=== PATIENT | female | born 1975 | race African-American/Black ===

== ENCOUNTER 2017-03-28 07:10 | Emergency (ER) | payer BC ==
--- NOTE | 2017-03-28 07:16 | PDOC ---
History of Present Illness - General Chief Complaint: Chest Pain Stated Complaint: CHEST PAIN Time Seen by Provider: 03/28/17 07:16 History Source: Patient - History of Present Illness Initial Comments: 03/28/17 07:43 Pt presents to the ED with the acute onset of sharp, constant, substernal non radiating chest pain and shortness of breath. Pain is pleuritic and worse with movements of her arms and chest. denies nausea, vomiting or diaphoresis. No history of similar pain. Pain began while she was guiding another person to the bathroom, but patient denies recent heavy lifting. History of HTN, for which she takes nifedipine and lisinopril, and has IUD in place. Patient is unsure whether IUD is a hormonal IUD or not. Aspirin Received prior to arrival: Yes: no aspirin today Past History - Past Medical History Allergies/Adverse Reactions: Allergies Allergy/AdvReac Type Severity Reaction Status Date / Time No Known Allergies Allergy Unverified 03/28/17 07:33 Home Medications: Ambulatory Orders Aspirin [ASA -] 81 mg PO DAILY 03/28/17 Lisinopril 10 mg PO DAILY 03/28/17 Nifedipine [Procardia Xl] 60 mg PO DAILY 03/28/17 Anemia: No Asthma: No Hx Myocardial Infarction: No CHF: No Diabetes: No HTN: Yes Other medical history: history of rheumatic fever without valve damage as a child - Reproductive History Is Patient Now?: No Review of Systems - Review of Systems Able to Perform ROS?: Yes Is the patient limited Spanish proficient: No Constitutional: No: Symptoms Reported, See HPI, Chills, Diaphoresis, Fever, Loss of Appetite, Malaise, Night Sweats, Weakness, Weight Stable, Unintentional Wgt. Loss, Unexplained wgt Loss, Other Respiratory: Yes: Shortness of Breath. No: Symptoms reported, See HPI, Cough, Orthopnea, SOB with Exertion, SOB at Rest, Stridor, Wheezing, Productive cough, Hemoptysis, Other Cardiac (ROS): Yes: Chest Pain. No: Symptoms Reported, See HPI, Edema, Irregular Heart Rate, Lightheadedness, Palpitations, Syncope, Chest Tightness, Other ABD/GI: No: Symptoms Reported, See HPI, Abdominal Distended, Abd. Pain w/ defecation, Blood Streaked Bowels, Constipated, Diarrhea, Difficulty Swallowing , Nausea, Poor Appetite, Poor Fluid Intake, Rectal Bleeding, Vomiting, Indigestion, Abdominal cramping, Tarry Stools, Other Neurological: No: Symptoms reported, See HPI, Headache, Numbness, Paresthesia, Pre-Existing Deficit, Seizure, Tingling, Tremors, Weakness, Unsteady Gait, Ataxia, Dizziness, Other Psychiatric: No: Anxiety, Depression, Frequent Crying, Stressors, Sleep Pattern Change, Emotional Problems, Mood Swings, Change in Appetite, Other All Other Systems: Reviewed and Negative *Physical Exam - Physical Exam General Appearance: Yes: Nourished, Appropriately Dressed. No: Apparent Distress, Disheveled, Mild Distress, Moderate Distress, Severe Distress, Alcohol on Breath, Intoxicated, Cachetic, Obese, Thin, Other HEENT: positive: EOMI, MIMI Neck: positive: Trachea midline, Supple Respiratory/Chest: positive: Chest Tender, Lungs Clear, Normal Breath Sounds. negative: Respiratory Distress, Accessory Muscle Use, Labored Respiration, Rapid RR, Decreased Breath Sounds, Paradoxal Breathing, Crackles, Rales, Rhonchi , Stridor, Wheezing, Hyperresonant, Dullness, Plerual Rub, Other Cardiovascular: positive: Regular Rhythm, Regular Rate, S1, S2. negative: Edema , JVD, Murmur, Bradycardia, Tachycardia, Diastolic Murmur, Systolic Murmur, Gallop/S3, Gallop/S4, Irregularly Irregular, Irregular, Other Gastrointestinal/Abdominal: positive: Normal Bowel Sounds, Flat, Soft. negative : Tender, Organomegaly, Pulsatile Mass, Increased Bowel Sounds, Decreased BS, Protuberent, Distended, Guarding, Rebound, Tenderness, Hernia, Mass, Hepatomegaly, Spleenomegaly, Other Musculoskeletal: positive: Normal Inspection Extremity: positive: Normal Capillary Refill, Normal Inspection Integumentary: positive: Normal Color, Dry, Warm Neurologic: positive: international travel consultant II-XII NML intact, Fully Oriented, Alert, Normal Mood/ Affect Heart Score/ECG Review - History History: Slightly suspicious - Electrocardiogram EKG: Normal - Age Age: </= 45 - Risk Factors Risk Factors Heart Score: Yes Hx Hypertension Based on the list above the patient has:: 1-2 risk factors - Troponin Troponin: </= normal limit - Score Heart Score - Total: 1 - ECG Intrepretation Rhythm: Regular Rhythm - [place]: Normal - P and HI Delta Wave(s) Present: No WPW: No - ST and T Early Repolarization: No Non Specific ST-T Wave changes: No - ECG Impressions Normal ECG: Yes ED Treatment Course - LABORATORY CBC & Chemistry Diagram: 03/28/17 07:31 03/28/17 07:31 Medical Decision Making - Medical Decision Making 03/28/17 07:55 Pt presents to the ED complaining of the acute onset of chest pain and shortness of breath. Chest pain is atypical of cardiac disease and patient has minimal risk factors--will check troponin to allow calculation of heart score, but ACS is unlikely. PERC negative. Pain is most likely muscular in origin. Will check labs and CXR to rule out pulmonary disease or pneumothorax, and likely discharge home. 03/28/17 08:00 03/28/17 09:18 patient feels improved after toradol. CXR and troponin are negative. HEART score is 1. Will discharge home with follow up with her primary care doctor. *DC/Admit/Observation/Transfer Diagnosis at time of Disposition: Atypical chest pain - Discharge Dispostion Disposition: HOME Condition at time of disposition: Good Admit: No - Patient Instructions Printed Discharge Instructions: DI for Atypical Chest Pain Additional Instructions: Return to the ED for severe pain, severe shortness of breath, sweating or lightheadness, passing out. Follow up with your doctor within one week.
[2017-03-28] MEDS ORDERED: ASPIRIN 81 MG CHEWABLE TABLETS PO ONE (07:29)
[2017-03-28] MEDS ORDERED: KETOROLAC TROMETHAMINE 30 MG/1 ML VIAL IVPUSH ONE (07:29)
[2017-03-28] MEDS ORDERED: LISINOPRIL 10 MG TABLET (FP) PO ONE (07:29)
[2017-03-28 07:47] VITALS: TEMP 98; BMI 28.8
[2017-03-28] MEDS ORDERED: NIFEdipine E.R 60 MG TABLET (UD) PO ONE (07:58)
[2017-03-28 08:17] LABS: ALBUMIN 3.8 g/dl (3.5-5.0); ALK PHOS 63 U/L (32-92); ANION GAP 5 (8-16); BILIRUBIN,TOTAL 0.4 mg/dl (0.2-1.0); CALCIUM 9.2 mg/dl (8.4-10.2); CO2 26 mmol/L (22-28); CPK 233 IU/L (26-192); GLUCOSE,RANDOM 93 mg/dl (74-106); SGOT/AST 19 U/L (10-42); SGPT/ALT 13 U/L (10-40); TOT PROT 7.1 g/dl (6.4-8.3)
[2017-03-28 08:22] LABS: BASOPHIL 2.7 % (0-2.0); EOSINOPHIL 2.3 % (0-4.5); MEAN CELL VOLUME 69.7 fl (80-96); MEAN PLT VOLUME 9.3 fl (7.5-11.1); NEUTROPHILS 46.5 % (42.8-82.8); PLATELET COUNT 246 K/MM3 (134-434); RDW 14.3 % (11.6-15.6); WHITE BLOOD COUNT 4.8 K/mm3 (4.0-10.8)
[2017-03-28 08:56] LABS: TROPONIN I (DFP) < 0.03 ng/ml (0.03-0.50)
[2017-03-28 09:25] VITALS: BP 160/98; PULSE 52
[2017-03-28] MEDS ORDERED: NIFEdipine E.R 60 MG TABLET (UD) PO SCH (10:00)
[2017-03-28 12:43] LABS: ANISOCYTOSIS 1+; HYPOCHROMIA 2+; MICROCYTOSIS 2+; PLATELET ESTIMATE ADEQUATE
--- NOTE | 2017-03-30 14:05 | EKG ---
Test Reason : Blood Pressure : / mmHG Vent. Rate : 064 BPM Atrial Rate : 064 BPM P-R Int : 138 ms QRS Dur : 090 ms QT Int : 412 ms P-R-T Axes : 067 031 042 degrees QTc Int : 425 ms NORMAL SINUS RHYTHM NORMAL ECG NO PREVIOUS ECGS AVAILABLE REPEAT EKG IF CLINICALLY INDICATED Confirmed by SHANTELL ROBLES MD ([id number]) on 03/30/2017 2:05:25 PM Referred By: PEDRO Confirmed By:SHANTELL ROBLES MD
== END 2017-03-28 09:26 | disposition home or self-care (01) ==
LOC: FER 07:10
PROC: 3E0333Z Introduction of Anti-inflammatory into Peripheral Vein, Percutaneous Approach (ICD-10-PCS; principal; 2017-03-28)
DX: R07.89 Other chest pain (principal)
CPT/HCPCS: 36415; 71020-TC; 80053; 82553; 84484; 84702; 85025; 93005; 93010; 99284-25